=== PATIENT | female | born 1965 | race African-American/Black ===

== ENCOUNTER 2020-05-04 10:42 | Emergency (ER) | payer MEDICAID ==
[~2020-05-04] VITALS: Ht 167.6 cm; Wt 90.7 kg
[2020-05-04 10:48] VITALS: Ht 167.6 cm; Wt 90.7 kg
[2020-05-04 11:52] LABS: PLATELET COUNT 372 x10^3mcL (179-408)
[2020-05-04 11:58] LABS: CALCIUM 7.6 mg/dL (8.5-10.1); CREATININE SERUM 1.1 mg/dL (0.6-1.0); POTASSIUM SERUM 4.2 mmol/L (3.5-5.1)
[2020-05-04 12:08] LABS: RED CELL DISTRIBUTION WIDTH 16.9 % (12.3-17.7)
[2020-05-04] MEDS ORDERED: IRON65 MG PO (14:16)
[2020-05-04 14:25] VITALS: BP 113/74
== END 2020-05-04 14:40 | disposition home or self-care (01) ==
LOC: ED 10:42
PROVIDERS: Emergency Medicine
DX: D64.9 Anemia, unspecified (principal); N93.9 Abnormal uterine and vaginal bleeding, unspecified
CPT/HCPCS: J2405; J7030